=== PATIENT | male | born 1975 | race Caucasian/White ===

== ENCOUNTER 2017-08-15 05:02 | Emergency (ER) | payer SELFPAY ==
--- NOTE | 2017-08-15 05:04 | EDPHY ---
H & P Time Seen by Provider: 08/15/17 05:04 HPI/ROS: HPI CHIEF COMPLAINT: Right upper dental pain. HISTORY OF PRESENT ILLNESS: Very pleasant 42-year-old male, history of dental decay, presents emergency room with right upper jaw line dental pain x2 days. Progressively getting worse. No fever. No trouble swallowing. Came to the emergency room due to pain control. Past Medical History: Type 2 diabetes. Dental decay. Past Surgical History: No recent surgery Social History: Denies drugs alcohol tobacco. Family History: Noncontributory ROS REVIEW OF SYSTEMS: A comprehensive 10 point review of systems is otherwise negative aside from elements mentioned in the history of present illness. Exam Constitutional he appears well nontoxic no acute distress, triage nursing summary reviewed, vital signs reviewed, awake/alert. Eyes normal conjunctivae and sclera, EOMI, PERRLA. HENT oropharynx right upper jaw line dental decay present. No gumline abscess. No Jose Francisco's. Dental decay present on tooth number #4 normal inspection, atraumatic, moist mucus membranes, no epistaxis, neck supple/ no meningismus, no raccoon eyes. Respiratory clear to auscultation bilaterally, normal breath sounds, no respiratory distress, no wheezing. Cardiovascular rate normal, regular rhythm, no murmur, no edema, distal pulses normal. Gastrointestinal soft, non-tender, no rebound, no guarding, normal bowel sounds, no distension, no pulsatile mass. Genitourinary no CVA tenderness. Musculoskeletal no midline vertebral tenderness, full range of motion, no calf swelling, no tenderness of extremities, no meningismus, good pulses, neurovascularly intact. Skin pink, warm, & dry, no rash, skin atraumatic. Neurologic awake, alert and oriented x 3, AAOx3, moves all 4 extremities equally, motor intact, sensory intact, CN II-XII intact, normal cerebellar, normal vision, normal speech. Psychiatric normal mood/affect. Heme/Lymph/Immune no lymphadenopathy. Differential Diagnosis: Includes but is not limited to in a particular order dental decay, dental caries, dental fracture, apical abscess, pulpitis, gumline abscess Medical Decision Making: Plan for this patient oral Pen-VK 1st dose given here in emergency room. Pen-VK to go pack. Ibuprofen anti-inflammatories, [place] for pain control. Dental aid referral. Return precautions discussed with the patient understands. Source: Patient Constitutional: Initial Vital Signs Temperature (C) 36.5 C 08/15/17 05:03 Heart Rate 71 08/15/17 05:03 Respiratory Rate 16 08/15/17 05:03 Blood Pressure 128/90 H 08/15/17 05:03 O2 Sat (%) 98 08/15/17 05:03 O2 Delivery Mode Room Air Allergies/Adverse Reactions: No Known Allergies Allergy (Unverified 08/15/17 05:06) Home Medications: Medication Instructions Recorded HumaLOG LISPRO 08/15/17 Hydrocodone/APAP 5/325 [[place] 1 - 2 tab PO Q4H PRN #10 tab 08/15/17 5/325] Ibuprofen [Motrin (*)] 800 mg PO Q6-8PRN #10 tab 08/15/17 Penicillin V Potassium [Pen Vk 500 mg PO Q6H 10 Days tab 08/15/17 500mg (*)] novoLOG 08/15/17 Departure - Departure Disposition: Home, Routine, Self-Care Clinical Impression: Pain, dental Condition: Good Instructions: Toothache (ED) Referrals: NONE *PRIMARY CARE P,. [Primary Care Provider] - As per Instructions Dental 911 [Outside] - As per Instructions Dental Aid [Outside] - As per Instructions Prescriptions: Hydrocodone/APAP 5/325 [[place] 5/325] 1 - 2 tab PO Q4H PRN #10 tab PRN Reason: Pain, Moderate Ibuprofen [Motrin (*)] 800 mg PO Q6-8PRN #10 tab Penicillin V Potassium [Pen Vk 500mg (*)] 500 mg PO Q6H 10 Days tab
[2017-08-15 05:07] VITALS: BP 128/90
[2017-08-15] MEDS ORDERED: PENICILLIN VK 500 MG TAB PO ONE (05:13)
[2017-08-15] MEDS ORDERED: PENICILLIN VK 250MG PREPACK#6 BTL TAKEHOME ONE (05:13)
== END 2017-08-15 05:22 | disposition home or self-care (01) ==
DX: K08.89 Other specified disorders of teeth and supporting structures (principal); E11.9 Type 2 diabetes mellitus without complications; Z79.4 Long term (current) use of insulin